=== PATIENT | male | born 1955 | race Caucasian/White ===

== ENCOUNTER 2020-09-05 13:00 | Day surgery (SDC) | payer OTHER ==
[2020-09-05] MEDS ORDERED: Depo-Medrol 40 MG/ML IM ONE (13:01)
[2020-09-05] MEDS ORDERED: BUPIVACAINE 0.5% VIAL IJ ONE (13:01)
[2020-09-05] MEDS ORDERED: Ketamine HCl 50 MG/ML ONE (14:47)
[2020-09-05] MEDS ORDERED: DIPRIVAN 200 MG/20 ML IV ONE (14:47)
[2020-09-05] MEDS ORDERED: Lactated Ringers 1,000 ML IV ONE (15:16)
--- NOTE | 2020-09-05 16:36 | XRAY ---
Indication: Bilateral SI joint injection. Intraoperative fluoroscopy provided for 34 seconds. 4 digital spot images submitted for interpretation demonstrates posterior needle tip projecting over the inferior left and right SI joint. Correlate with intraoperative findings/report.
--- NOTE | 2020-09-05 16:38 | XRAY ---
34 seconds of fluoroscopy was used in surgery for bilateral SI joint injections.
== END 2020-09-05 15:21 | disposition home or self-care (01) ==
LOC: SDC-PAIN 13:00
PROVIDERS: ATTEND Psychiatry & Neurology Pain Medicine
DX: M46.1 Sacroiliitis, not elsewhere classified (principal); Z79.899 Other long term (current) drug therapy
CPT/HCPCS: 27096; 72202; 77002; G0260; J1030; J2704

== ENCOUNTER 2020-12-19 15:49 | Day surgery (SDC) | payer OTHER ==
[2020-12-19] MEDS ORDERED: Depo-Medrol 40 MG/ML IM ONE (15:50)
[2020-12-19] MEDS ORDERED: BUPIVACAINE 0.5% VIAL IJ ONE (15:50)
[2020-12-19] MEDS ORDERED: Xylocaine 1% Vial 30 ML PF IJ ONE (15:50)
--- NOTE | 2020-12-19 17:35 | XRAY ---
Indication: Right shoulder injection. Intraoperative fluoroscopy provided for 11 seconds. Single digital spot image submitted for interpretation demonstrates needle tip projecting over the right glenohumeral joint superiorly. Small amount of contrast injected for needle tip placement. Correlate with intraoperative findings/report.
--- NOTE | 2020-12-20 09:18 | XRAY ---
11 seconds fluoroscopy time in surgery for intra-articular injection of the right shoulder.
== END 2020-12-19 17:02 | disposition home or self-care (01) ==
LOC: SDC-PAIN 15:49
PROVIDERS: ATTEND Psychiatry & Neurology Pain Medicine
DX: M19.011 Primary osteoarthritis, right shoulder (principal); Z79.899 Other long term (current) drug therapy
CPT/HCPCS: 20610; 73030; 77002; J1030; J2001; Q9966

== ENCOUNTER 2021-01-16 13:23 | Day surgery (SDC) | payer OTHER ==
[2021-01-16] MEDS ORDERED: BUPIVACAINE 0.5% VIAL IJ ONE (13:24)
[2021-01-16] MEDS ORDERED: Depo-Medrol 40 MG/ML IM ONE (13:24)
[2021-01-16] MEDS ORDERED: Xylocaine 1% Vial 30 ML PF IJ ONE (13:24)
--- NOTE | 2021-01-17 11:53 | XRAY ---
13 seconds fluoroscopy time in surgery for injection of the left SI joint.
--- NOTE | 2021-01-20 00:37 | XRAY ---
Indication: Left sacroiliac joint injection. Intraoperative fluoroscopy was provided for 13 seconds. A single lateral digital spot image submitted for interpretation demonstrates the posterior needle tip projected over the sacroiliac joint. Correlate with intraoperative findings/report.
== END 2021-01-16 15:20 | disposition home or self-care (01) ==
LOC: SDC-PAIN 13:23
PROVIDERS: ATTEND Psychiatry & Neurology Pain Medicine
DX: M46.1 Sacroiliitis, not elsewhere classified (principal); Z79.899 Other long term (current) drug therapy
CPT/HCPCS: 27096; 72020; 77002; J1030; J2001; G0260

== ENCOUNTER 2021-05-22 12:05 | Day surgery (SDC) | payer MEDICARE, OTHER ==
[2021-05-22] MEDS ORDERED: BUPIVACAINE 0.5% VIAL IJ ONE (12:06)
[2021-05-22] MEDS ORDERED: Depo-Medrol 40 MG/ML IM ONE (12:06)
[2021-05-22] MEDS ORDERED: Xylocaine 1% Vial 30 ML PF IJ ONE (12:06)
--- NOTE | 2021-05-22 15:21 | XRAY ---
Indication: Left SI joint injection. Intraoperative fluoroscopy provided for 12 seconds. 2 digital spot images demonstrates posterior needle tip projecting over the inferior left SI joint. Correlate with intraoperative findings/report.
--- NOTE | 2021-05-22 15:34 | XRAY ---
12 seconds fluoroscopy time in surgery for injection of the left SI joint.
== END 2021-05-22 14:09 | disposition home or self-care (01) ==
LOC: SDC-PAIN 12:05
PROVIDERS: ATTEND Psychiatry & Neurology Pain Medicine
DX: M46.1 Sacroiliitis, not elsewhere classified (principal); I25.10 Atherosclerotic heart disease of native coronary artery without angina pectoris; Z79.899 Other long term (current) drug therapy
CPT/HCPCS: 27096; 72020; 77002; G0260; J1030; J2001

== ENCOUNTER 2021-06-12 12:29 | Day surgery (SDC) | payer MEDICARE, OTHER ==
[2021-06-12] MEDS ORDERED: LIDOCAINE HCL 2% 100 MG/5 ML IJ ONE (12:30)
[2021-06-12] MEDS ORDERED: Depo-Medrol 40 MG/ML IM ONE (12:30)
[2021-06-12] MEDS ORDERED: DIPRIVAN 200 MG/20 ML IV ONE (14:41)
[2021-06-12] MEDS ORDERED: Lactated Ringers 1,000 ML IV ONE (14:57)
--- NOTE | 2021-06-12 16:56 | XRAY ---
Indication: Bilateral L4-S1 MBB. Intraoperative fluoroscopy provided for 17 seconds. Single digital spot image submitted for interpretation demonstrates posterior needle tips projecting over the expected left and right L4-S1 nerve roots. Correlate with intraoperative findings/report.
--- NOTE | 2021-06-12 17:15 | XRAY ---
17 seconds of fluoroscopy was used in surgery for a bilateral L4-S1 MBB.
== END 2021-06-12 15:11 | disposition home or self-care (01) ==
LOC: SDC-PAIN 12:29
PROVIDERS: ATTEND Psychiatry & Neurology Pain Medicine
DX: M47.816 Spondylosis without myelopathy or radiculopathy, lumbar region (principal); Z79.899 Other long term (current) drug therapy
CPT/HCPCS: 64493; 64494; 72020; 72100; 77002; J1030; J2704

== ENCOUNTER 2021-07-24 11:27 | Day surgery (SDC) | payer MEDICARE, OTHER ==
[2021-07-24] MEDS ORDERED: Depo-Medrol 40 MG/ML IM ONE (11:28)
[2021-07-24] MEDS ORDERED: BUPIVACAINE 0.5% VIAL IJ ONE (11:28)
[2021-07-24] MEDS ORDERED: Lactated Ringers 1,000 ML IV ONE (13:56)
[2021-07-24] MEDS ORDERED: DIPRIVAN 200 MG/20 ML IV ONE (14:09)
--- NOTE | 2021-07-24 15:12 | XRAY ---
Indication: Bilateral L4-S1 MBB. Intraoperative fluoroscopy provided for 11 seconds. Single digital spot image submitted for interpretation demonstrates posterior needle tips projecting over the expected left and right L4-S1 nerve roots. Correlate with intraoperative findings/report.
--- NOTE | 2021-07-24 15:18 | XRAY ---
11 seconds fluoroscopy time in surgery for bilateral L4-S1 MBB.
== END 2021-07-24 14:35 | disposition home or self-care (01) ==
LOC: SDC-PAIN 11:27
PROVIDERS: ATTEND Psychiatry & Neurology Pain Medicine
DX: M47.816 Spondylosis without myelopathy or radiculopathy, lumbar region (principal); Z79.899 Other long term (current) drug therapy
CPT/HCPCS: 64493; 64494; 72020; 77002; J1030; J2704

== ENCOUNTER 2021-08-21 14:44 | Day surgery (SDC) | payer MEDICARE, OTHER ==
[2021-08-21] MEDS ORDERED: BUPIVACAINE 0.5% VIAL IJ ONE (17:35)
[2021-08-21] MEDS ORDERED: Xylocaine 1% Vial 30 ML PF IJ ONE (17:35)
[2021-08-21] MEDS ORDERED: Depo-Medrol 40 MG/ML IM ONE (17:35)
[2021-08-21] MEDS ORDERED: DIPRIVAN 200 MG/20 ML IV ONE ×2 (17:54→17:58)
[2021-08-21] MEDS ORDERED: Lactated Ringers 1,000 ML IV ONE (18:35)
--- NOTE | 2021-08-21 20:39 | XRAY ---
Indication: Left L4-S1 RFA. Intraoperative fluoroscopy provided for 21 seconds. 3 digital spot image submitted for interpretation demonstrates posterior needle tips projecting over the expected left L4-S1 nerve roots. Correlate with intraoperative findings/report.
--- NOTE | 2021-08-22 08:58 | XRAY ---
21 seconds fluoroscopy time in surgery for left L4-S1 RFA.
== END 2021-08-21 18:20 | disposition home or self-care (01) ==
LOC: SDC-PAIN 14:44
PROVIDERS: ATTEND Psychiatry & Neurology Pain Medicine
DX: M47.816 Spondylosis without myelopathy or radiculopathy, lumbar region (principal); Z79.899 Other long term (current) drug therapy
CPT/HCPCS: 64635; 64636; 72100; 77002; J1030; J2001; J2704

== ENCOUNTER 2021-08-28 11:49 | Day surgery (SDC) | payer MEDICARE, OTHER ==
[2021-08-28] MEDS ORDERED: Lactated Ringers 1,000 ML IV ONE (14:17)
[2021-08-28] MEDS ORDERED: DIPRIVAN 200 MG/20 ML IV ONE (14:39)
--- NOTE | 2021-08-28 15:21 | XRAY ---
Indication: Right L4-S1 RFA. Intraoperative fluoroscopy provided for 22 seconds. 3 digital spot image submitted for interpretation demonstrates posterior needle tips projecting over the expected right L4-S1 nerve roots. Correlate with intraoperative findings/report.
--- NOTE | 2021-08-28 15:29 | XRAY ---
22 seconds fluoroscopy time in surgery for right L4-S1 RFA.
== END 2021-08-28 15:05 | disposition home or self-care (01) ==
LOC: SDC-PAIN 11:49
PROVIDERS: ATTEND Psychiatry & Neurology Pain Medicine
DX: M47.816 Spondylosis without myelopathy or radiculopathy, lumbar region (principal); Z79.899 Other long term (current) drug therapy
CPT/HCPCS: 64635; 64636; 72100; 77002; J2704

== ENCOUNTER 2022-01-01 13:36 | Day surgery (SDC) | payer MEDICARE, OTHER ==
[2022-01-01] MEDS ORDERED: Marcaine Mpf 0.5% Vial 30 Ml IJ ONE (13:37)
[2022-01-01] MEDS ORDERED: XYLOCAINE-MPF 1% 5ML SDV IJ ONE (13:37)
[2022-01-01] MEDS ORDERED: Depo-Medrol 40 MG/ML IM ONE (13:37)
[2022-01-01] MEDS ORDERED: DIPRIVAN 200 MG/20 ML IV ONE (16:27)
--- NOTE | 2022-01-01 19:32 | XRAY ---
Indication: Right shoulder injection. Intraoperative fluoroscopy provided for 12 seconds. Single digital spot image submitted for interpretation needle tip projecting over the right glenohumeral joint superiorly. Small amount of contrast injected for needle tip placement. Correlate with intraoperative findings/report.
--- NOTE | 2022-01-02 08:28 | XRAY ---
12 seconds of fluoroscopy was used in surgery for an intra-articular injection of the right shoulder.
== END 2022-01-01 16:43 | disposition home or self-care (01) ==
LOC: SDC-PAIN 13:36
PROVIDERS: ATTEND Psychiatry & Neurology Pain Medicine
DX: M19.011 Primary osteoarthritis, right shoulder (principal); Z79.899 Other long term (current) drug therapy
CPT/HCPCS: 20610; 73030; 77002; J1030; J2704; Q9966

== ENCOUNTER 2023-10-28 12:57 | Day surgery (SDC) | payer MEDICARE ==
[2023-10-28] MEDS ORDERED: BUPIVACAINE 0.5% VIAL IJ ONE (12:58)
[2023-10-28] MEDS ORDERED: Depo-Medrol 40 MG/ML IM ONE (12:58)
[2023-10-28] MEDS ORDERED: Lactated Ringers 1,000 ML IV ONE (14:55)
[2023-10-28] MEDS ORDERED: DIPRIVAN 200 MG/20 ML IV ONE (15:23)
--- NOTE | 2023-10-28 16:20 | XRAY ---
Indication: Bilateral L4-S1 MBB. Intraoperative fluoroscopy provided for 15 seconds. Single digital spot image submitted for interpretation demonstrates posterior needle tips projecting over the expected left and right L4-S1 nerve roots. Correlate with intraoperative findings/report.
--- NOTE | 2023-10-29 10:34 | XRAY ---
15 seconds of fluoroscopy was used in surgery for a bilateral L4-S1 MBB.
== END 2023-10-28 15:56 | disposition home or self-care (01) ==
LOC: SDC-PAIN 12:57
PROVIDERS: ATTEND Psychiatry & Neurology Pain Medicine
DX: M47.816 Spondylosis without myelopathy or radiculopathy, lumbar region (principal)
CPT/HCPCS: 64493; 64494; 72020; 77002; J1010; J2704

== ENCOUNTER 2023-12-16 11:57 | Day surgery (SDC) | payer MEDICARE ==
[2023-12-16] MEDS ORDERED: BUPIVACAINE 0.5% VIAL IJ ONE (11:58)
[2023-12-16] MEDS ORDERED: Lactated Ringers 1,000 ML IV ONE (14:02)
[2023-12-16] MEDS ORDERED: DIPRIVAN 200 MG/20 ML IV ONE (14:13)
--- NOTE | 2023-12-16 16:49 | XRAY ---
Indication: Bilateral L4-S1 MBB. Intraoperative fluoroscopy provided for 13 seconds. Single digital spot image submitted for interpretation demonstrates posterior needle tips projecting over the expected left and right L4-S1 nerve roots. Correlate with intraoperative findings/report.
--- NOTE | 2023-12-16 17:03 | XRAY ---
13 seconds of fluoroscopy was used in surgery for a bilateral L4-S1 MBB.
== END 2023-12-16 14:42 | disposition home or self-care (01) ==
LOC: SDC-PAIN 11:57
PROVIDERS: ATTEND Psychiatry & Neurology Pain Medicine
DX: M47.816 Spondylosis without myelopathy or radiculopathy, lumbar region (principal)
CPT/HCPCS: 64493; 64494; 72020; 77002; J2704

== ENCOUNTER 2024-01-20 13:55 | Day surgery (SDC) | payer MEDICARE ==
[2024-01-20] MEDS ORDERED: BUPIVACAINE 0.5% VIAL IJ ONE (13:56)
[2024-01-20] MEDS ORDERED: Depo-Medrol 40 MG/ML IM ONE (13:56)
[2024-01-20] MEDS ORDERED: LIDOCAINE HCL 1% 50 MG/5 ML VL PF IJ ONE (13:56)
[2024-01-20] MEDS ORDERED: DIPRIVAN 200 MG/20 ML IV ONE (16:02)
[2024-01-20] MEDS ORDERED: Lactated Ringers 1,000 ML IV ONE (16:31)
--- NOTE | 2024-01-20 16:31 | XRAY ---
Indication: Left L4-S1 RFA. Intraoperative fluoroscopy provided for 18 seconds. 4 digital spot image submitted for interpretation demonstrates posterior needle tips projecting over the expected left L4-S1 nerve roots. Correlate with intraoperative findings/report.
--- NOTE | 2024-01-21 08:52 | XRAY ---
18 seconds of fluoroscopy was used in surgery for a left L4-S1 RFA.
== END 2024-01-20 16:38 | disposition home or self-care (01) ==
LOC: SDC-PAIN 13:55
PROVIDERS: ATTEND Psychiatry & Neurology Pain Medicine
DX: M47.816 Spondylosis without myelopathy or radiculopathy, lumbar region (principal)
CPT/HCPCS: 64635; 64636; 72100; 77002; J2001; J2704

== ENCOUNTER 2024-01-27 14:10 | Day surgery (SDC) | payer MEDICARE ==
[2024-01-27] MEDS ORDERED: LIDOCAINE HCL 1% 50 MG/5 ML VL PF IJ ONE (14:11)
[2024-01-27] MEDS ORDERED: Depo-Medrol 40 MG/ML IM ONE (14:11)
[2024-01-27] MEDS ORDERED: BUPIVACAINE 0.5% VIAL IJ ONE (14:11)
[2024-01-27] MEDS ORDERED: Lactated Ringers 1,000 ML IV ONE (15:45)
[2024-01-27] MEDS ORDERED: DIPRIVAN 200 MG/20 ML IV ONE (15:54)
--- NOTE | 2024-01-27 17:22 | XRAY ---
Indication: Right L4-S1 RFA. Intraoperative fluoroscopy provided for 20 seconds. 3 digital spot images submitted for interpretation demonstrates posterior needle tips projecting over the expected right L4-S1 nerve roots. Correlate with intraoperative findings/report.
--- NOTE | 2024-01-27 17:28 | XRAY ---
20 seconds of fluoroscopy was used in surgery for a right L4-S1 RFA.
== END 2024-01-27 16:30 | disposition home or self-care (01) ==
LOC: SDC-PAIN 14:10
PROVIDERS: ATTEND Psychiatry & Neurology Pain Medicine
DX: M47.816 Spondylosis without myelopathy or radiculopathy, lumbar region (principal)
CPT/HCPCS: 64635; 64636; 72100; 77002; J2001; J2704

== ENCOUNTER 2024-04-28 14:45 | Day surgery (SDC) | payer MEDICARE ==
[2024-04-28] MEDS ORDERED: LIDOCAINE HCL 1% AMPUL 5 ML IJ ONE (14:46)
[2024-04-28] MEDS ORDERED: BUPIVACAINE 0.5% VIAL IJ ONE (14:46)
[2024-04-28] MEDS ORDERED: Depo-Medrol 40 MG/ML IM ONE (14:46)
--- NOTE | 2024-04-28 21:48 | XRAY ---
Indication: Bilateral SI joint injection. Intraoperative fluoroscopy provided for 24 seconds. 2 digital spot images submitted for interpretation demonstrates posterior needle tips projecting over left and right SI joints. Small amount of contrast injected for needle tip placement. Correlate with intraoperative findings/report.
--- NOTE | 2024-04-28 21:58 | XRAY ---
24 seconds of fluoroscopy was used in surgery for a bilateral sacroiliac joint injection.
== END 2024-04-28 16:25 | disposition home or self-care (01) ==
LOC: SDC-PAIN 14:45
PROVIDERS: ATTEND Psychiatry & Neurology Pain Medicine
DX: M46.1 Sacroiliitis, not elsewhere classified (principal)
CPT/HCPCS: 27096; 72202; 77002; G0260; Q9966